=== PATIENT | male | born 1985 | race Caucasian/White ===

== ENCOUNTER → 2023-09-06 09:06 | Outpatient (CLI) | payer OTHER, SELFPAY ==
--- NOTE | 2023-09-06 | DI.RAD.S_ITS ---
PROCEDURE: XR LUMBAR SPINE 2-3V INDICATIONS: ARTHRITIS TECHNIQUE: 3 views of the lumbar spine were acquired. COMPARISON: None. FINDINGS: Bones: 5 [id number] vertebrae are present. There is 6 mm retrolisthesis of L1 on L2 and 4 mm retrolisthesis of L2 on L3, 5 mm retrolisthesis of L3 on L4 is also seen. Mild degenerative endplate changes and loss of disc height throughout lumbar spine is seen most notably at L1-2 level.. No vertebral body compression fractures. No suspicious bony lesions. Soft tissues: Overlying bowel gas pattern is normal. No suspicious soft tissue calcifications. IMPRESSION: Degenerative disc disease throughout lumbar spine with grade 1 retrolisthesis at L1-2 through L3-4 levels. No acute compression fracture. Dictated by: Shai Matos M.D. on 09/06/2023 at 12:42 Approved by: Shai Matos M.D. on 09/06/2023 at 12:43
--- NOTE | 2023-09-06 | DI.RAD.S_ITS ---
PROCEDURE: XR FOOT RT 2V INDICATIONS: ARTHRITIS TECHNIQUE: 3 views of the foot were acquired. COMPARISON: None. FINDINGS: Bones: No fractures or dislocations. No suspicious bony lesions. Soft tissues: No tibiotalar joint effusion. Achilles tendon appears normal. IMPRESSION: No significant osseous abnormality. Dictated by: Thomas Branham M.D. on 09/06/2023 at 12:22 Approved by: Thomas Branham M.D. on 09/06/2023 at 12:23
--- NOTE | 2023-09-06 | DI.RAD.S_ITS ---
PROCEDURE: XR CERVICAL SPINE 2V OR 3V INDICATIONS: ARTHRITIS TECHNIQUE: 4 view(s) of the cervical spine were acquired. COMPARISON: Outside Film, MR, MR CERVICAL SPINE WITHOUT CONTRAST, 12/15/2022, 7:20. FINDINGS: Bones: No fractures or dislocations to the T1 level. The lateral masses of C1 appear intact on the odontoid view. No suspicious bony lesions. Soft tissues: No prevertebral soft tissue swelling. IMPRESSION: No significant osseous abnormality. Dictated by: Thomas Branham M.D. on 09/06/2023 at 12:19 Approved by: Thomas Branham M.D. on 09/06/2023 at 12:21
== END ==
PROVIDERS: Referring Provider Chiropractor; Visit Provider Chiropractor
DX: M51.36 Other intervertebral disc degeneration, lumbar region (principal); M43.16 Spondylolisthesis, lumbar region; M13.80 Other specified arthritis, unspecified site
CPT/HCPCS: 72040; 72100; 73630

== ENCOUNTER → 2023-10-19 09:05 | Outpatient (CLI) | payer OTHER, SELFPAY ==
--- NOTE | 2023-10-19 09:07 | DI.RAD.S_ITS ---
PROCEDURE: XR THORACIC SPINE 2V INDICATIONS: arthritis TECHNIQUE: Three views of the thoracic spine were acquired. COMPARISON: None. FINDINGS: Bones: No fractures or dislocations. No suspicious bony lesions. Eleven pairs of ribs are noted, and appear intact where visualized. Soft tissues: No paravertebral stripe thickening. IMPRESSION: No acute bony abnormality. Dictated by: Iliana Gould M.D. on 10/19/2023 at 14:14 Approved by: Iliana Gould M.D. on 10/19/2023 at 14:14
== END ==
PROVIDERS: Referring Provider Chiropractor; Visit Provider Chiropractor
DX: M13.80 Other specified arthritis, unspecified site (principal)
CPT/HCPCS: 72070